=== PATIENT | female | born 1980 | race Caucasian/White ===

== ENCOUNTER → 2021-04-23 10:40 | Outpatient (CLI) | payer OTHER, SELFPAY ==
[2021-04-24 10:58] LABS: SARS-CoV-2 RNA PCR Negative
== END ==
PROVIDERS: PCP Physician Assistant; Visit Provider Physician Assistant
DX: R51.9 Headache, unspecified (principal); Z20.822 Contact with and (suspected) exposure to COVID-19
CPT/HCPCS: C9803; U0003; U0005

== ENCOUNTER 2023-03-04 11:56 | Emergency (ER) | payer OTHER, SELFPAY ==
[2023-03-04 12:12] VITALS: PULSE 74; RESP 16; TEMP 36.4; O2SAT 100
--- NOTE | 2023-03-04 12:12 | ED.URI ---
HPI - URI/Sore Throat General Chief Complaint: Upper Respiratory Infection Stated Complaint: COUGH Time Seen by Provider: 03/04/23 12:12 Source: patient and RN notes reviewed Mode of arrival: ambulatory Limitations: no limitations History of Present Illness HPI Narrative: 42-year-old female presented for complaint of cough for 5 days. She states cough is worse at night, nonproductive. Tested negative for COVID at home. She denies sinus congestion, shortness of breath, wheezing, nausea vomiting, diarrhea, fevers or chills. Taking Mucinex and NyQuil for symptoms. MD elicited complaint: cough Related Data Allergies Allergy/AdvReac Type Severity Reaction Status Date / Time No Known Allergies Allergy Verified 03/04/23 12:17 Review of Systems Review of Systems: CONSTITUTIONAL: Denies malaise, chills, sweats, fever EYES: Denies visual changes, redness, or discharge ENT: Denies rhinorrhea, congestion, sinus pain, otalgia, sore throat CARDIOVASCULAR: Denies chest pain, palpitations, edema RESPIRATORY: Reports cough, Denies dyspnea GASTROINTESTINAL: Denies abdominal pain, nausea, vomiting, diarrhea SKIN: Denies rash or itching MUSCULOSKELETAL: Denies myalgia NEUROLOGIC: Denies headache [facility] Past Medical History Medical History (Updated 03/04/23 @ 12:28 by Sushma Mota APRN) No pertinent past medical history Exam Narrative: GENERAL: well-appearing, nontoxic no acute distress. HEAD: Normocephalic EYES: PERRLA, conjunctivae clear ENT: Mucous membranes moist. TM pearly martínez with dull light reflex bilaterally; no tragal tenderness. Oropharynx erythematous without lesions or exudate, no drooling, no hoarseness, no trismus, uvula midline. NECK: Supple. No lymphadenopathy CHEST: Clear to auscultation, breath sounds equal. No wheezing, rhonchi, rales, or stridor. No respiratory distress, speaks in full sentences. HEART: Regular rate and rhythm. No murmur heard. SKIN: Warm, dry, no rash. NEURO: Alert and oriented x3. PSYCH: Normal mood and affect Course Course Emergency Course: Patient is aware of diagnosis, understands and agrees to treatment plan. Anticipatory guidance given. Patient agrees to follow-up as directed and is aware of reasons to seek care at the emergency department. Portions of this record may have been created with voice recognition software Level of Care: Express Care Visit Vital Signs Vital signs: Vital Signs Temperature 97.6 F 03/04/23 12:12 Pulse Rate 74 03/04/23 12:12 Respiratory Rate 16 03/04/23 12:12 Pulse Oximetry 100 03/04/23 12:12 Oxygen Delivery Room Air 03/04/23 12:12 Temperature 97.6 F 03/04/23 12:12 Pulse Rate 74 03/04/23 12:12 Respiratory Rate 16 03/04/23 12:12 Blood Pressure 143/100 H 03/04/23 12:31 Pulse Oximetry 100 03/04/23 12:12 Oxygen Delivery Room Air 03/04/23 12:12 reviewed MDM - URI/Sore Throat MDM Narrative Medical decision making narrative: Discussed physical exam findings. Advised supportive measures and signs/symptoms to go to the ER. Pt is appropriate for outpt treatment and f/u. Differential Diagnosis Differential diagnosis: Likely upper respiratory infection, sinusitis, viral infection, bronchitis and pharyngitis Discharge Plan Discharge Clinical Impression: Bronchitis Patient Disposition: Home, Self-Care Condition: Stable Instructions: Antibiotic Form, Acute Bronchitis (ED) Additional Instructions: Recommend Flonase spray and Zyrtec (or Claritin/Leslee) if you have sinus congestion/drainage over the counter Cough syrup may cause drowsiness; avoid driving or take it at night time. Tylenol 1000mg every 8 hours as needed for pain Symptomatic treatment includes: rest, fluids, and increase humidity of the air at home. Take medication as directed Follow up with your primary care provider in 1 week. Go to the ER for worsening symptoms or concerns. Prescriptions: New benzonatate 200
[2023-03-04 12:31] VITALS: BP 143/100
== END 2023-03-04 12:27 | disposition home or self-care (01) ==
PROVIDERS: Emergency Provider Nurse Practitioner Family; PCP Physician Assistant
DX: J40 Bronchitis, not specified as acute or chronic (principal)
CPT/HCPCS: 99213; G0463